=== PATIENT | female | born 2000 | race Two or more races ===

== ENCOUNTER 2023-11-25 18:59 | Emergency (ER) | payer SELFPAY ==
[~2023-11-25] VITALS: Ht 170.2 cm; Wt 70.6 kg
[2023-11-25 20:10] LABS: Urine Bacteria FEW /hpf (None Seen); Urine Blood 3+ /uL (Negative); Urine Clarity HAZY (Clear); Urine Color Yellow (Yellow); Urine Mucus FEW (None Seen); Urine Protein, UAD TRACE (Negative); Urine Specific Gravity 1.023 (1.001-1.035); Urine Urobilinogen Normal (Negative); Urine WBC 7 /hpf (0 - 5); Urine pH 5.5 (5.0-8.0)
[2023-11-25] MEDS ORDERED: CEPH500C PO (20:56)
[2023-11-25 22:07] VITALS: BP 113/67; PULSE 73; RESP 19; TEMP 98.5; O2SAT 100
== END 2023-11-25 22:09 | disposition home or self-care (01) ==
LOC: ER 18:59
DX: N39.0 Urinary tract infection, site not specified (principal); R10.2 Pelvic and perineal pain; Z88.0 Allergy status to penicillin
CPT/HCPCS: 76856; 81001; 81025